=== PATIENT | male | born 1945 | race Caucasian/White ===

== ENCOUNTER 2020-01-31 02:11 | Observation (INO) | payer MEDICARE ==
[2020-01-31] MEDS ORDERED: Bacitracin 1 PK ONE (02:33)
[2020-01-31] MEDS ORDERED: Ondansetron PF 4 MG/2 ML Vial IVP PRN (03:02)
[2020-01-31] MEDS ORDERED: Dextrose 50% Abboject 50 ML SYRINGE SLOW IVP PRN (03:02)
[2020-01-31] MEDS ORDERED: Dextrose 5% in Water 1,000 ML IV PRN (03:02)
[2020-01-31] MEDS ORDERED: Cyclobenzaprine 10 MG TAB PO PRN (03:06)
[2020-01-31] MEDS ORDERED: traMADol HCl 50 MG TAB PO PRN ×2 (03:06)
[2020-01-31] MEDS ORDERED: Sodium Chloride 0.9% 1,000 ML IV SCH ×2 (03:15→05:00)
[2020-01-31 04:07] LABS: INR-International Normal Ratio 1.2; Prothrombin Time 15.2 sec (12.0-14.7)
[2020-01-31 04:14] LABS: Hemoglobin 10.8 g/dL (14.0-18.0); Mean Corpuscular HGB CONC 32.1 g/dL (32.0-36.0); Mean Corpuscular Hemoglobin 27.5 pg (27.0-31.0); Mean Corpuscular Volume 85.5 fL (78.0-98.0); RBC Distribution Width 15.2 % (11.5-14.5); Red Blood Cell (RBC) Count 3.94 mill/uL (4.70-6.10); White Blood Cell (WBC) Count 13.5 thou/uL (4.8-10.8)
[2020-01-31 04:16] LABS: Lactic Acid 1.5 mmol/L (0.5-2.2)
[2020-01-31 04:18] LABS: Band 6 % (5-11); Hypochromia SLIGHT = 6-15 cells (100X) (0-5/hpf); Lymphocytes 7 % (21-51); MDiff Complete? YES; Mean Platelet Volume 13.7 fL (7.4-10.4); Monocytes 10 % (0-10); Neutrophil 77 % (42-75); Platelet Count 54 thou/uL (130-400); Platelet Morphology Comment Appears Decreased
[2020-01-31 04:21] LABS: Anion Gap 15 mmol/L (10-20); BUN (Urea Nitrogen) 25 mg/dL (8.4-25.7); Calc. Creatinine Clearance 0 mL/min (70-130); Carbon Dioxide 22 mmol/L (23-31); Chloride 104 mmol/L (98-107); Estimated GFR-MDRD 41; Glucose 239 mg/dL (83-110); Magnesium 1.8 mg/dL (1.6-2.6); Phosphorus 4.7 mg/dL (2.3-4.7); Potassium 4.7 mmol/L (3.5-5.1); Sodium 136 mmol/L (136-145)
[2020-01-31] MEDS ORDERED: Magnesium 2 GM/50 ML 2 GM in Premix Bag 1 BAG IVPB SCH ×2 (04:30→08:15)
[2020-01-31] MEDS ORDERED: Hydrocortisone Sod Succ/PF 100 mg/2 ml Vial ONE (04:44)
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
[2020-01-31] MEDS: Hydrocortisone Sod Succ/PF 100 mg/2 ml Vial IVP SCH ×2 (06:37→12:22)
[2020-01-31 06:49] VITALS: BMI 21.7
[2020-01-31] MEDS: Acetaminophen 500 MG TAB PO SCH ×3 (07:20→15:10)
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
[2020-01-31] MEDS ORDERED: Senokot S 8.6-50 MG TAB PO SCH (09:00)
[2020-01-31] MEDS ORDERED: Polyethylene Glycol 3350 17 GM Packet PO SCH (09:00)
[2020-01-31] MEDS ORDERED: Famotidine/PF 20 mg/2ml Vial SLOW IVP SCH (09:00)
[2020-01-31] MEDS: Gabapentin 100 MG CAP PO SCH ×2 (09:05→15:10)
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
[2020-01-31] MEDS ORDERED: Iopamidol-370 76% 500 ML 1 ML ONE (10:09)
[2020-01-31] MEDS: Insulin Regular 300 UNITS/3 ML VIAL SC PRN ×2 (12:23→16:52)
[2020-01-31 16:34] VITALS: BP 106/66; TEMP 97.5
[2020-02-01] MEDS ORDERED: Prevnar 13-Val Conj/PF 0.5 ML SYRINGE IM ONE (13:00)
== END 2020-01-31 17:38 | disposition home or self-care (01) ==
LOC: ERS 02:11 → SURG A 05:35
PROVIDERS: ADMIT Surgery; ATTEND Surgery
DX: S20.211A Contusion of right front wall of thorax, initial encounter (principal); S80.811A Abrasion, right lower leg, initial encounter; N17.9 Acute kidney failure, unspecified; I10 Essential (primary) hypertension; E11.9 Type 2 diabetes mellitus without complications; D46.9 Myelodysplastic syndrome, unspecified; R16.1 Splenomegaly, not elsewhere classified; K57.90 Diverticulosis of intestine, part unspecified, without perforation or abscess without bleeding; W31.89XA Contact with other specified machinery, initial encounter; Z79.84 Long term (current) use of oral hypoglycemic drugs; Z79.899 Other long term (current) drug therapy; Z88.0 Allergy status to penicillin; Z88.4 Allergy status to anesthetic agent; Z88.5 Allergy status to narcotic agent; Z88.2 Allergy status to sulfonamides; Z88.6 Allergy status to analgesic agent
CPT/HCPCS: 73030; 73060; 73090; 74177; 80048; 82533; 82550; 82962; 83605; 83735; 83880; 84100; 85007; 85027; 85610; 86850; 86900; 86901; 96361; 96374; 96375; 96376; 97116; 97139 ×4; 99285; G0378 ×2; 36415; 36416; G0390; J1720; J1815; J3475; Q9967; S0028

== ENCOUNTER 2020-02-04 23:04 | Observation (INO) | payer MEDICARE ==
[2020-02-05] MEDS ORDERED: Ondansetron PF 4 MG/2 ML Vial ONE (00:19)
[2020-02-05] MEDS ORDERED: Morphine 4 MG/ML VIAL ONE (00:19)
[2020-02-05 00:33] LABS: Hemoglobin 7.2 g/dL (14.0-18.0); Mean Corpuscular HGB CONC 33.2 g/dL (32.0-36.0); Mean Corpuscular Hemoglobin 28.5 pg (27.0-31.0); Mean Corpuscular Volume 85.7 fL (78.0-98.0); RBC Distribution Width 15.7 % (11.5-14.5); Red Blood Cell (RBC) Count 2.52 mill/uL (4.70-6.10); White Blood Cell (WBC) Count 8.5 thou/uL (4.8-10.8)
[2020-02-05 00:37] LABS: INR-International Normal Ratio 1.1; PTT 32.6 sec (22.9-36.1); Prothrombin Time 14.4 sec (12.0-14.7)
[2020-02-05 00:52] LABS: ALT (SGPT) 11 U/L (8-55); AST (SGOT) 11 U/L (5-34); Alkaline Phosphatase 69 U/L (40-110); Anion Gap 14 mmol/L (10-20); BUN (Urea Nitrogen) 19 mg/dL (8.4-25.7); Bilirubin, Total 1.3 mg/dL (0.2-1.2); Calc. Creatinine Clearance 0 mL/min (70-130); Carbon Dioxide 26 mmol/L (23-31); Chloride 104 mmol/L (98-107); Estimated GFR-MDRD 45; Glucose 161 mg/dL (83-110); Potassium 4.3 mmol/L (3.5-5.1); Sodium 140 mmol/L (136-145)
[2020-02-05 00:58] LABS: Mean Platelet Volume 11.9 fL (7.4-10.4); Platelet Count 37 thou/uL (130-400)
[2020-02-05 01:00] LABS: Band 11 % (5-11); Large Platelets SLIGHT; Lymphocytes 13 % (21-51); MDiff Complete? YES; Monocytes 10 % (0-10); Neutrophil 66 % (42-75); Platelet Morphology Comment Appears Decreased
[2020-02-05] MEDS ORDERED: Senokot S 8.6-50 MG TAB PO PRN (02:57)
[2020-02-05] MEDS ORDERED: Dextrose 5% in Water 1,000 ML IV PRN (03:00)
[2020-02-05] MEDS ORDERED: Dextrose 50% Abboject 50 ML SYRINGE SLOW IVP PRN (03:00)
[2020-02-05 03:25] VITALS: BMI 21.9
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
[2020-02-05 05:43] LABS: Hemoglobin 8.2 g/dL (14.0-18.0); Mean Corpuscular HGB CONC 33.3 g/dL (32.0-36.0); Mean Corpuscular Hemoglobin 28.6 pg (27.0-31.0); Mean Corpuscular Volume 85.7 fL (78.0-98.0); Red Blood Cell (RBC) Count 2.88 mill/uL (4.70-6.10); White Blood Cell (WBC) Count 7.7 thou/uL (4.8-10.8)
[2020-02-05 05:51] LABS: Anion Gap 15 mmol/L (10-20); BUN (Urea Nitrogen) 19 mg/dL (8.4-25.7); Calc. Creatinine Clearance 51 mL/min (70-130); Calcium 8.6 mg/dL (7.8-10.44); Carbon Dioxide 21 mmol/L (23-31); Chloride 105 mmol/L (98-107); Estimated GFR-MDRD 57; Glucose 131 mg/dL (83-110); Potassium 3.9 mmol/L (3.5-5.1); Sodium 137 mmol/L (136-145)
[2020-02-05 05:58] LABS: Band 11 % (5-11); Large Platelets SLIGHT; Lymphocytes 17 % (21-51); MDiff Complete? YES; Mean Platelet Volume 11.8 fL (7.4-10.4); Monocytes 14 % (0-10); Myelocyte 1 % (0-0); Neutrophil 57 % (42-75); Nucleated RBC 2 % (0); Platelet Count 39 thou/uL (130-400); Platelet Morphology Comment Appears Decreased
--- NOTE | 2020-02-05 07:45 | RAD ---
EXAM: CHEST ONE VIEW HISTORY: Chest pain with inspiration after a fall. COMPARISON: 12/07/2018 FINDINGS: The cardiac silhouette and pulmonary vasculature is within normal limits. The lungs are clear. No pne umothorax or pleural effusion is seen. Vascular calcifications are seen in the thoracic aorta. No definite fracture is appreciated. Chest is unchanged compared to prior study. IMPRESSION: No acute cardiopulmonary process.
[2020-02-05] MEDS: Gabapentin 100 MG CAP PO SCH ×2 (08:27→20:28)
[2020-02-05] MEDS: Senokot S 8.6-50 MG TAB PO SCH ×2 (08:27→20:29)
[2020-02-05] MEDS: Polyethylene Glycol 3350 17 GM Packet PO SCH (08:27)
[2020-02-05] MEDS: HumaLOG 300 UNITS/3 ML VIAL SC PRN ×3 (13:40→22:06)
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
[2020-02-05 19:30] LABS: Hemoglobin 8.8 g/dL (14.0-18.0)
[2020-02-05] MEDS: Acetaminophen 325 MG TAB PO PRN (19:39)
[2020-02-05] MEDS ORDERED: METFORMIN HCL 2000 MG PO SCH (21:00)
[2020-02-05] MEDS ORDERED: Multivit, Therapeutic 1 TAB PO SCH (21:00)
[2020-02-05] MEDS ORDERED: Ascorbic Acid 500 mg Chewable Tablet PO SCH (21:00)
[2020-02-05] MEDS ORDERED: Simvastatin 20 MG TAB PO SCH (21:00)
[2020-02-05] MEDS ORDERED: Lisinopril 10 MG TAB PO SCH (21:00)
[2020-02-05] MEDS ORDERED: Allopurinol 300 MG TAB PO SCH ×2 (21:00)
[2020-02-06] MEDS: Acetaminophen 325 MG TAB PO PRN (06:02)
[2020-02-06] MEDS: HumaLOG 300 UNITS/3 ML VIAL SC PRN (06:02)
[2020-02-06 06:33] LABS: Bilirubin Negative (Negative); Blood, Urine Negative (Negative); Clarity Clear (Clear); Glucose, Urine (Dipstick) Normal (Negative); Leukocyte Negative Leu/uL (Negative); Nitrite Negative (Negative); Protein, Urine (Dipstick) Negative (Neg-Trace); Urobilinogen Normal mg/dL (Less than 2)
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
[2020-02-06 07:59] LABS: Band 8 % (5-11); Hemoglobin 8.3 g/dL (14.0-18.0); Lymphocytes 16 % (21-51); MDiff Complete? YES; Mean Corpuscular Hemoglobin 28.6 pg (27.0-31.0); Mean Corpuscular Volume 86.7 fL (78.0-98.0); Mean Platelet Volume 11.4 fL (7.4-10.4); Metamyelocyte 1 % (0-0); Monocytes 12 % (0-10); Neutrophil 62 % (42-75); Platelet Count 46 thou/uL (130-400); Platelet Morphology Comment Appears Decreased; Polychromasia SLIGHT = 2-3 cells (100X) (0-2/hpf); RBC Distribution Width 15.8 % (11.5-14.5); Reactive Lymphocytes 1 % (0-10); Red Blood Cell (RBC) Count 2.91 mill/uL (4.70-6.10); White Blood Cell (WBC) Count 7.9 thou/uL (4.8-10.8)
[2020-02-06] MEDS ORDERED: Ferrous Sulfate 325 MG TAB PO SCH (08:00)
[2020-02-06 08:10] VITALS: TEMP 97.8
[2020-02-06] MEDS: Gabapentin 100 MG CAP PO SCH (08:10)
[2020-02-06] MEDS: Polyethylene Glycol 3350 17 GM Packet PO SCH (08:19)
[2020-02-06] MEDS: Senokot S 8.6-50 MG TAB PO SCH (08:19)
[2020-02-06] MEDS ORDERED: Alogliptin 25 MG TAB PO SCH (09:00)
[2020-02-06 12:01] VITALS: BP 102/65
--- NOTE | 2020-02-07 00:56 | DIS ---
DATE OF ADMISSION: 02/05/2020 DATE OF DISCHARGE: 02/06/2020 PRIMARY CARE PROVIDER: Dr. Manny Morales. DISCHARGE DIAGNOSES: 1. Symptomatic anemia. 2. Generalized weakness. Condition of patient on day of discharge: Stable. I assessed Mr. Anne on the day of discharge. He denies any chest pain or shortness of breath. Vital signs are stable. S1 and S2 are heard, regular. Lungs are clear to auscultation bilaterally. CONSULTATIONS DURING THIS HOSPITALIZATION: Trauma team, Dr. Jose Carlos Fuchs. HOSPITAL COURSE: Mr. Anne is a pleasant 74-year-old gentleman, who was admitted to [facility] on February 05, 2020 for symptomatic anemia. At the time of admission, his hemoglobin was 7.2. He does have a history of myelodysplastic syndrome as well as recent trauma. He received packed RBC transfusion, with improvement in hemoglobin to 8.3 on the day of discharge. He was also seen by trauma team. He ambulated with the walking program. He is being discharged home in a stable condition. POST-ACUTE CARE FOLLOWUP: With primary care provider in 3 days and with his oncologist in 1-2 weeks. ACTIVITY: As tolerated. DIET: Diabetic and heart healthy. DISCHARGE DISPOSITION: Home. No change was made to his pre-admission home medications. Many thanks for allowing me to participate in your patient's care. Please feel free to contact me with any questions or concerns. Job ID: [id number]
== END 2020-02-06 15:25 | disposition home or self-care (01) ==
LOC: ERS 23:04 → SURG A 02-05 02:08
PROVIDERS: ADMIT Internal Medicine; ATTEND Internal Medicine
DX: D46.9 Myelodysplastic syndrome, unspecified (principal); M79.89 Other specified soft tissue disorders; I10 Essential (primary) hypertension; E11.9 Type 2 diabetes mellitus without complications; E78.00 Pure hypercholesterolemia, unspecified; S40.021A Contusion of right upper arm, initial encounter; S30.1XXA Contusion of abdominal wall, initial encounter; S81.801A Unspecified open wound, right lower leg, initial encounter; M10.9 Gout, unspecified; Z79.84 Long term (current) use of oral hypoglycemic drugs; Z79.899 Other long term (current) drug therapy; Z88.0 Allergy status to penicillin; Z88.1 Allergy status to other antibiotic agents; Z88.2 Allergy status to sulfonamides; Z88.4 Allergy status to anesthetic agent; Z88.6 Allergy status to analgesic agent; V84.9XXA Unspecified occupant of special agricultural vehicle injured in nontraffic accident, initial encounter
CPT/HCPCS: 36430; 71045; 76999; 80048; 80053; 81003; 82962 ×2; 84484; 85014; 85018; 85025 ×3; 85610; 85730; 86850; 86900; 86901; 86920; 93005; 97139 ×3; 99285; G0378 ×2; P9016; 36415; 36416; J2270; J2405

== ENCOUNTER 2021-05-05 10:07 | Inpatient (IN) | payer MEDICARE ==
[2021-05-05 10:42] LABS: Hemoglobin 13.8 g/dL (14.0-18.0); Mean Corpuscular Volume 84.8 fL (78.0-98.0); RBC Distribution Width 15.2 % (11.5-14.5); Red Blood Cell (RBC) Count 4.95 mill/uL (4.70-6.10); White Blood Cell (WBC) Count 6.3 thou/uL (4.8-10.8)
[2021-05-05 10:44] LABS: Mean Platelet Volume 14.4 fL (7.4-10.4); Platelet Count 25 thou/uL (130-400); Reflex for Review?? NO
[2021-05-05 11:04] LABS: ALT (SGPT) 11 U/L (8-55); AST (SGOT) 12 U/L (5-34); Albumin 4.4 g/dL (3.4-4.8); Alkaline Phosphatase 98 U/L (40-110); Anion Gap 20 mmol/L (10-20); BUN (Urea Nitrogen) 26 mg/dL (8.4-25.7); Bilirubin, Total 1.1 mg/dL (0.2-1.2); Calc. Creatinine Clearance 0 mL/min (70-130); Calcium 8.9 mg/dL (7.8-10.44); Carbon Dioxide 18 mmol/L (23-31); Chloride 96 mmol/L (98-107); Globulin 2.3 g/dL (2.4-3.5); Glucose 366 mg/dL (83-110); Potassium 4.8 mmol/L (3.5-5.1); Protein, Total 6.7 g/dL (5.8-8.1); Sodium 129 mmol/L (136-145)
[2021-05-05 11:10] LABS: Anisocytosis SLIGHT = 6-15 cells (100X) (0-5/hpf); Band 12 % (5-11); Giant Platelets SLIGHT; Lymphocytes 11 % (21-51); MDiff Complete? YES; Monocytes 24 % (0-10); Neutrophil 52 % (42-75); Platelet Morphology Comment Appears Decreased
[2021-05-05] MEDS ORDERED: Acetaminophen 500 MG TAB ONE (12:57)
[2021-05-05 13:27] LABS: Bacteria/HPF None Seen HPF (None Seen); Bilirubin Negative (Negative); Blood, Urine Trace (Negative); Clarity Clear (Clear); Glucose, Urine (Dipstick) Greater than 1000 mg/dL (Negative); Ketone, Urine 10 mg/dL (Negative); Leukocyte Negative Leu/uL (Negative); Nitrite Negative (Negative); Protein, Urine (Dipstick) 30 mg/dL (Neg-Trace); RBC/HPF 0-3 HPF (0-3); Specific Gravity, Urine 1.024 (1.002-1.036); Squamous Epithelial None Seen HPF (0-3); Urobilinogen Normal mg/dL (Less than 2); WBC/HPF 0-3 HPF (0-3); pH, Urine 5.5 (5.0-9.0)
[2021-05-05 14:05] LABS: SARS-CoV-2 NAA Rapid Test DETECTED (NotDetected)
[2021-05-05 14:20] LABS: Lactic Acid 2.5 mmol/L (0.5-2.2)
[2021-05-05] MEDS ORDERED: Dexamethasone 10 MG/ML VIAL ONE (15:52)
[2021-05-05] MEDS ORDERED: HumaLOG 300 UNITS/3 ML VIAL SC PRN (16:46)
[2021-05-05] MEDS ORDERED: Dextrose 50% Abboject 50 ML SYRINGE SLOW IVP PRN (16:46)
[2021-05-05] MEDS ORDERED: Dextrose 5% in Water 1,000 ML IV PRN (16:46)
[2021-05-05] MEDS ORDERED: Ondansetron ODT 4 MG TAB PO PRN (16:48)
[2021-05-05] MEDS ORDERED: Acetaminophen 650 MG Suppository PR PRN (16:48)
[2021-05-05] MEDS ORDERED: Ondansetron PF 4 MG/2 ML Vial IVP PRN (16:48)
[2021-05-05] MEDS ORDERED: Benzonatate 100 MG CAP PO PRN (16:54)
[2021-05-05] MEDS ORDERED: Ivermectin 3 MG TAB PO SCH (17:00)
[2021-05-05] MEDS ORDERED: Sodium Chloride 0.9% 1,000 ML IV SCH (17:30)
[2021-05-05] MEDS ORDERED: REMDESIVIR 200 MG in Sodium Chloride 0.9% 250 ML 210 ML IV SCH (18:00)
[2021-05-05] MEDS ORDERED: Acetaminophen 325 MG TAB ONE (18:59)
[2021-05-05] MEDS ORDERED: Famotidine 20 MG TAB PO SCH (21:00)
[2021-05-05] MEDS ORDERED: Colchicine 0.6 MG TAB PO SCH (21:00)
[2021-05-05] MEDS ORDERED: Famotidine 20 MG TAB ONE (21:12)
[2021-05-06 00:04] VITALS: BMI 20.6
[2021-05-06] MEDS: HumaLOG 300 UNITS/3 ML VIAL SC PRN ×4 (04:33→20:17)
[2021-05-06] MEDS: Acetaminophen 325 MG TAB PO PRN ×4 (04:33→20:08)
[2021-05-06] MEDS: Mometasone 200 MCG/Formoterol 5 MCG 120 PUFF INHALER INH SCH ×3 (05:49→16:42)
[2021-05-06 07:20] LABS: Hemoglobin 12.4 g/dL (14.0-18.0); Mean Corpuscular HGB CONC 33.5 g/dL (32.0-36.0); Mean Corpuscular Hemoglobin 28.1 pg (27.0-31.0); Mean Corpuscular Volume 83.8 fL (78.0-98.0); Mean Platelet Volume 15.4 fL (7.4-10.4); Platelet Count 25 thou/uL (130-400); RBC Distribution Width 14.9 % (11.5-14.5); White Blood Cell (WBC) Count 4.4 thou/uL (4.8-10.8)
[2021-05-06 07:21] LABS: Anion Gap 16 mmol/L (10-20); BUN (Urea Nitrogen) 28 mg/dL (8.4-25.7); Calc. Creatinine Clearance 39 mL/min (70-130); Calcium 8.7 mg/dL (7.8-10.44); Carbon Dioxide 20 mmol/L (23-31); Chloride 101 mmol/L (98-107); Glucose 279 mg/dL (83-110); Potassium 3.7 mmol/L (3.5-5.1); Sodium 133 mmol/L (136-145)
[2021-05-06] MEDS: Guaifenesin DM 100-10/5 ML UDCUP PO PRN (08:42)
[2021-05-06] MEDS: Ivermectin 3 MG TAB PO SCH (08:42)
[2021-05-06] MEDS: Cholecalciferol 1,000 UNITS (25 MCG) TAB PO SCH (08:48)
[2021-05-06] MEDS: Zinc Sulfate 220 MG CAP PO SCH (08:49)
[2021-05-06] MEDS: Ascorbic Acid 500 mg Chewable Tablet PO SCH (08:49)
[2021-05-06 09:11] LABS: Band 16 % (5-11); Lymphocytes 10 % (21-51); MDiff Complete? YES; Monocytes 17 % (0-10); Neutrophil 44 % (42-75); Platelet Morphology Comment Appears Decreased; Polychromasia SLIGHT = 2-3 cells (100X) (0-2/hpf); Reactive Lymphocytes 13 % (0-10)
[2021-05-06] MEDS: Lisinopril 2.5 MG TAB PO SCH (19:55)
[2021-05-06] MEDS: Atorvastatin Calcium 10 MG TAB PO SCH (19:57)
[2021-05-06] MEDS: Multivit, Therapeutic 1 TAB PO SCH (19:58)
[2021-05-06] MEDS: Allopurinol 300 MG TAB PO SCH (19:58)
[2021-05-06] MEDS: Famotidine 20 MG TAB PO SCH (20:17)
[2021-05-07] MEDS: Acetaminophen 325 MG TAB PO PRN ×3 (04:24→20:04)
[2021-05-07] MEDS: HumaLOG 300 UNITS/3 ML VIAL SC PRN ×4 (04:28→20:14)
[2021-05-07] MEDS: Mometasone 200 MCG/Formoterol 5 MCG 120 PUFF INHALER INH SCH ×2 (06:28→17:22)
[2021-05-07] MEDS: Ascorbic Acid 500 mg Chewable Tablet PO SCH (08:27)
[2021-05-07] MEDS: Cholecalciferol 1,000 UNITS (25 MCG) TAB PO SCH ×2 (08:27→08:28)
[2021-05-07] MEDS: Empagliflozin 10 MG TAB PO SCH (08:27)
[2021-05-07] MEDS: Zinc Sulfate 220 MG CAP PO SCH (08:27)
[2021-05-07] MEDS: Guaifenesin DM 100-10/5 ML UDCUP PO PRN (08:27)
[2021-05-07] MEDS: Ivermectin 3 MG TAB PO SCH (09:50)
[2021-05-07 09:57] LABS: Mean Corpuscular HGB CONC 32.4 g/dL (32.0-36.0); Mean Corpuscular Hemoglobin 27.5 pg (27.0-31.0); Mean Corpuscular Volume 84.7 fL (78.0-98.0); Mean Platelet Volume 14.7 fL (7.4-10.4); Platelet Count 27 thou/uL (130-400); RBC Distribution Width 15.2 % (11.5-14.5); Red Blood Cell (RBC) Count 5.09 mill/uL (4.70-6.10); White Blood Cell (WBC) Count 5.2 thou/uL (4.8-10.8)
[2021-05-07 12:08] LABS: Band 22 % (5-11); Lymphocytes 15 % (21-51); MDiff Complete? YES; Monocytes 22 % (0-10); Neutrophil 40 % (42-75); Platelet Morphology Comment Appears Decreased; RBC Morphology Normal; Reactive Lymphocytes 1 % (0-10)
[2021-05-07] MEDS: Allopurinol 300 MG TAB PO SCH (20:02)
[2021-05-07] MEDS: Lisinopril 2.5 MG TAB PO SCH ×2 (20:04→20:29)
[2021-05-07] MEDS: Atorvastatin Calcium 10 MG TAB PO SCH (20:04)
[2021-05-07] MEDS: Famotidine 20 MG TAB PO SCH (20:28)
[2021-05-07] MEDS: Multivit, Therapeutic 1 TAB PO SCH (20:29)
[2021-05-08] MEDS: Acetaminophen 325 MG TAB PO PRN (04:40)
[2021-05-08] MEDS: HumaLOG 300 UNITS/3 ML VIAL SC PRN (05:29)
[2021-05-08] MEDS: Mometasone 200 MCG/Formoterol 5 MCG 120 PUFF INHALER INH SCH (06:19)
[2021-05-08] MEDS: Empagliflozin 10 MG TAB PO SCH (06:30)
[2021-05-08 07:21] LABS: Hemoglobin 13.7 g/dL (14.0-18.0); Mean Corpuscular Hemoglobin 26.8 pg (27.0-31.0); Mean Corpuscular Volume 83.7 fL (78.0-98.0); Platelet Count 31 thou/uL (130-400); RBC Distribution Width 15.3 % (11.5-14.5); Red Blood Cell (RBC) Count 5.14 mill/uL (4.70-6.10); White Blood Cell (WBC) Count 7.4 thou/uL (4.8-10.8)
[2021-05-08 08:07] LABS: Band 23 % (5-11); Lymphocytes 4 % (21-51); MDiff Complete? YES; Monocytes 6 % (0-10); Neutrophil 45 % (42-75); Platelet Morphology Comment Appears Decreased; Polychromasia SLIGHT = 2-3 cells (100X) (0-2/hpf); Reactive Lymphocytes 22 % (0-10)
[2021-05-08] MEDS: Ascorbic Acid 500 mg Chewable Tablet PO SCH (09:21)
[2021-05-08] MEDS: Cholecalciferol 1,000 UNITS (25 MCG) TAB PO SCH (09:22)
[2021-05-08] MEDS: Zinc Sulfate 220 MG CAP PO SCH (09:22)
[2021-05-08] MEDS: Ivermectin 3 MG TAB PO SCH (09:23)
[2021-05-08] MEDS: Sodium Chloride 0.9% 1,000 ML IV SCH (17:28)
[2021-05-08 18:43] LABS: Lactic Acid 1.7 mmol/L (0.5-2.2)
[2021-05-08] MEDS: Multivit, Therapeutic 1 TAB PO SCH (21:55)
[2021-05-08] MEDS: Famotidine 20 MG TAB PO SCH (21:55)
[2021-05-08] MEDS: Lisinopril 2.5 MG TAB PO SCH (21:55)
[2021-05-08] MEDS: Atorvastatin Calcium 10 MG TAB PO SCH (21:55)
[2021-05-08] MEDS: Allopurinol 300 MG TAB PO SCH (21:55)
[2021-05-09 05:39] LABS: Hemoglobin 13.4 g/dL (14.0-18.0); Mean Corpuscular HGB CONC 33.1 g/dL (32.0-36.0); Mean Corpuscular Hemoglobin 28.3 pg (27.0-31.0); Mean Corpuscular Volume 85.6 fL (78.0-98.0); Mean Platelet Volume 14.9 fL (7.4-10.4); Platelet Count 27 thou/uL (130-400); RBC Distribution Width 15.3 % (11.5-14.5); Red Blood Cell (RBC) Count 4.72 mill/uL (4.70-6.10)
[2021-05-09 05:55] LABS: ALT (SGPT) 14 U/L (8-55); AST (SGOT) 17 U/L (5-34); Alkaline Phosphatase 74 U/L (40-110); Anion Gap 20 mmol/L (10-20); BUN (Urea Nitrogen) 55 mg/dL (8.4-25.7); Bilirubin, Total 0.4 mg/dL (0.2-1.2); Calc. Creatinine Clearance 31 mL/min (70-130); Calcium 8.4 mg/dL (7.8-10.44); Carbon Dioxide 13 mmol/L (23-31); Chloride 106 mmol/L (98-107); Globulin 2.1 g/dL (2.4-3.5); Glucose 233 mg/dL (83-110); Potassium 4.5 mmol/L (3.5-5.1); Protein, Total 5.1 g/dL (5.8-8.1); Sodium 134 mmol/L (136-145)
[2021-05-09 06:16] LABS: Band 26 % (5-11); Large Platelets SLIGHT; Lymphocytes 5 % (21-51); MDiff Complete? YES; Metamyelocyte 1 % (0-0); Monocytes 14 % (0-10); Neutrophil 54 % (42-75); Nucleated RBC 1 % (0); Platelet Morphology Comment Appears Decreased
[2021-05-09] MEDS: HumaLOG 300 UNITS/3 ML VIAL SC PRN ×4 (06:23→21:53)
[2021-05-09] MEDS: Sodium Chloride 0.9% 1,000 ML IV SCH (06:23)
[2021-05-09] MEDS: Empagliflozin 10 MG TAB PO SCH (08:30)
[2021-05-09] MEDS: Cholecalciferol 1,000 UNITS (25 MCG) TAB PO SCH (08:30)
[2021-05-09] MEDS: Ivermectin 3 MG TAB PO SCH (08:31)
[2021-05-09] MEDS: Ascorbic Acid 500 mg Chewable Tablet PO SCH (08:31)
[2021-05-09] MEDS: Sodium Bicarbonate Tab 325 MG TAB PO SCH ×2 (08:32→21:50)
[2021-05-09] MEDS: Zinc Sulfate 220 MG CAP PO SCH (08:32)
[2021-05-09] MEDS: Mometasone 200 MCG/Formoterol 5 MCG 120 PUFF INHALER INH SCH ×2 (09:09→18:11)
[2021-05-09] MEDS ORDERED: Lactated Ringer's 500 ML IV SCH (15:15)
[2021-05-09] MEDS: Lactated Ringer's 1,000 ML IV SCH (15:59)
[2021-05-09] MEDS: Acetaminophen 325 MG TAB PO PRN (17:41)
[2021-05-09] MEDS ORDERED: Sodium Bicarb 50 MEQ/50 ML Abboject 8.4% SYRINGE IVP SCH ×2 (19:30→22:30)
[2021-05-09] MEDS ORDERED: Lantus 1000 UNITS/10 ML VIAL SC SCH (21:00)
[2021-05-09] MEDS: Famotidine 20 MG TAB PO SCH (21:50)
[2021-05-09] MEDS: Atorvastatin Calcium 10 MG TAB PO SCH (21:50)
[2021-05-09] MEDS: Lisinopril 2.5 MG TAB PO SCH (21:50)
[2021-05-09] MEDS: Multivit, Therapeutic 1 TAB PO SCH (21:51)
[2021-05-09] MEDS: Allopurinol 300 MG TAB PO SCH (21:56)
[2021-05-10] MEDS: Guaifenesin DM 100-10/5 ML UDCUP PO PRN (00:56)
[2021-05-10] MEDS ORDERED: Lorazepam 2 MG/ML VIAL SLOW IVP PRN (01:21)
[2021-05-10 01:57] LABS: Actual Bicarbonate (HCO3a) 17.7 mEq/L (22-28); Base Excess (BEa) -5.3 mEq/L (-2.0 to +3.0); CO2 Tension 27.8 mmHg (35.0-45.0); Calcium, Ionized (arterial) 1.28 mmol/L (1.12-1.30); Carboxyhemoglobin (COHb) 0.3 gm% (0.0-3.0); Hemoglobin (Hb) 13.3 g/dL (14.0-18.0); Potassium - ABG Lab 4.14 mmol/L (3.70-5.30); pH, Arterial 7.42 (7.35-7.45)
[2021-05-10 02:02] LABS: O2 Tension (PaO2), arterial 55.5 mmHg (> 70.0); Puncture Site LRA
[2021-05-10 05:03] LABS: Anion Gap 15 mmol/L (10-20); BUN (Urea Nitrogen) 49 mg/dL (8.4-25.7); Calc. Creatinine Clearance 34 mL/min (70-130); Calcium 8.9 mg/dL (7.8-10.44); Carbon Dioxide 19 mmol/L (23-31); Chloride 110 mmol/L (98-107); Glucose 236 mg/dL (83-110); Potassium 4.2 mmol/L (3.5-5.1); Sodium 140 mmol/L (136-145)
[2021-05-10 05:06] LABS: Hemoglobin 11.5 g/dL (14.0-18.0); Mean Corpuscular HGB CONC 32.7 g/dL (32.0-36.0); Mean Corpuscular Hemoglobin 27.9 pg (27.0-31.0); Mean Corpuscular Volume 85.1 fL (78.0-98.0); Mean Platelet Volume 14.8 fL (7.4-10.4); Platelet Count 28 thou/uL (130-400); RBC Distribution Width 15.3 % (11.5-14.5); Red Blood Cell (RBC) Count 4.13 mill/uL (4.70-6.10); White Blood Cell (WBC) Count 8.3 thou/uL (4.8-10.8)
[2021-05-10] MEDS: Lactated Ringer's 1,000 ML IV SCH (06:35)
[2021-05-10 06:39] LABS: Band 17 % (5-11); Lymphocytes 9 % (21-51); MDiff Complete? YES; Monocytes 10 % (0-10); Neutrophil 64 % (42-75); Ovalocytes SLIGHT = 2-5 cells (100X) (0-1/hpf); Platelet Morphology Comment Appears Decreased
[2021-05-10] MEDS: Morphine 4 MG/ML VIAL SLOW IVP PRN ×3 (06:40→13:07)
[2021-05-10] MEDS: REMDESIVIR 100 MG in Sodium Chloride 0.9% 250 ML 230 ML IV SCH ×3 (07:22→07:24)
[2021-05-10] MEDS: Mometasone 200 MCG/Formoterol 5 MCG 120 PUFF INHALER INH SCH ×2 (07:23→08:32)
[2021-05-10] MEDS: Empagliflozin 10 MG TAB PO SCH (08:32)
[2021-05-10] MEDS: Cholecalciferol 1,000 UNITS (25 MCG) TAB PO SCH (08:33)
[2021-05-10] MEDS: Ivermectin 3 MG TAB PO SCH (08:33)
[2021-05-10] MEDS: Ascorbic Acid 500 mg Chewable Tablet PO SCH (08:33)
[2021-05-10] MEDS: Sodium Bicarbonate Tab 325 MG TAB PO SCH (08:34)
[2021-05-10] MEDS: Zinc Sulfate 220 MG CAP PO SCH (08:34)
[2021-05-10] MEDS: Lorazepam 2 MG/ML VIAL SLOW IVP PRN ×2 (08:57→13:07)
[2021-05-10] MEDS ORDERED: Dexamethasone 4 mg/ml Vial SLOW IVP SCH (09:00)
[2021-05-10] MEDS ORDERED: Dexamethasone 10 MG in Sodium Chloride 0.9% 50 ML IVPB SCH (09:00)
[2021-05-10] MEDS ORDERED: BARICITINIB 2 MG TAB PO SCH (09:00)
[2021-05-10] MEDS ORDERED: Dexamethasone 6 MG in Sodium Chloride 0.9% 50 ML IVPB SCH (09:00)
[2021-05-10 09:23] VITALS: BP 81/48; TEMP 99.2
== END 2021-05-10 15:08 | disposition hospice, inpatient (51) | DRG 871 ==
LOC: ERS 10:07 → ERHOLD 16:57 → T4-B 21:03 → 2SW 05-09 20:04
PROVIDERS: ADMIT Internal Medicine; ATTEND Internal Medicine
PROC: 8E0ZXY6 Isolation (ICD-10-PCS; principal; 2021-05-05)
PROC: XW033E5 Introduction of Remdesivir Anti-infective into Peripheral Vein, Percutaneous Approach, New Technology Group 5 (ICD-10-PCS; 2021-05-05)
DX: A41.89 Other specified sepsis (principal); U07.1 COVID-19; J12.82 Pneumonia due to coronavirus disease 2019; J96.00 Acute respiratory failure, unspecified whether with hypoxia or hypercapnia; C94.6 Myelodysplastic disease, not elsewhere classified; E87.1 Hypo-osmolality and hyponatremia; N17.9 Acute kidney failure, unspecified; L03.115 Cellulitis of right lower limb; E87.2 Acidosis; E78.5 Hyperlipidemia, unspecified; M10.9 Gout, unspecified; E11.65 Type 2 diabetes mellitus with hyperglycemia; D64.9 Anemia, unspecified; D69.6 Thrombocytopenia, unspecified; N18.30 Chronic kidney disease, stage 3 unspecified; E11.22 Type 2 diabetes mellitus with diabetic chronic kidney disease; I12.9 Hypertensive chronic kidney disease with stage 1 through stage 4 chronic kidney disease, or unspecified chronic kidney disease; E78.00 Pure hypercholesterolemia, unspecified; G47.33 Obstructive sleep apnea (adult) (pediatric); K21.9 Gastro-esophageal reflux disease without esophagitis; N40.0 Benign prostatic hyperplasia without lower urinary tract symptoms; Z66 Do not resuscitate; Z88.1 Allergy status to other antibiotic agents; Z88.0 Allergy status to penicillin; Z88.8 Allergy status to other drugs, medicaments and biological substances; Z88.2 Allergy status to sulfonamides; Z79.899 Other long term (current) drug therapy; Z90.49 Acquired absence of other specified parts of digestive tract
CPT/HCPCS: 36415; 36416; 36600; 71045; 80048; 80053; 81003; 81015; 82010; 82248; 82728; 82805; 83036; 83605; 83615; 84100; 84484; 84550; 85025; 85379; 86140; 87040; 93005; 93010; 94760; 96374; J1100; J1815; J2060; J2270; J2405; J7050; J7120; Q0162; U0002; U0005